=== PATIENT | female | born 1990 | race Hispanic/Latino ===

== ENCOUNTER 2022-01-23 15:52 | Emergency (ER) | payer OTHER | END 2022-01-23 18:25 | disposition home or self-care (01) | LOC: CSHERS 15:52 | DX: U07.1 COVID-19 (principal); R10.9 Unspecified abdominal pain; R51.9 Headache, unspecified | CPT/HCPCS: 99283 ==

== ENCOUNTER 2023-03-05 05:30 | Inpatient (IN) | payer OTHER ==
[2023-03-06] MEDS ORDERED: Bupivacaine 0.25% HCL 30 ML VIAL ONE (08:00)
[2023-03-06] MEDS ORDERED: Methylergonovine 0.2 MG/ML VIAL IM PRN (09:40)
[2023-03-06] MEDS ORDERED: Carboprost 250 MCG/ML AMP IM PRN (09:40)
[2023-03-06] MEDS ORDERED: Promethazine HCl 25 MG/ML VIAL IM PRN ×3 (09:40→21:15)
[2023-03-06] MEDS ORDERED: Diphenoxylate HCl/Atropine Tablet PO PRN ×2 (09:40)
[2023-03-06] MEDS ORDERED: Docusate 100 MG CAP PO PRN (09:40)
[2023-03-06] MEDS ORDERED: Acetaminophen 500 MG TAB PO PRN (09:40)
[2023-03-06] MEDS ORDERED: Misoprostol 200 MCG TAB PR PRN (09:40)
[2023-03-06] MEDS ORDERED: Ondansetron PF 4 MG/2 ML Vial IVP PRN ×3 (09:40→21:15)
[2023-03-06] MEDS ORDERED: Lidocaine 1% (PF) 30 ML VIAL SC PRN (09:40)
[2023-03-06] MEDS ORDERED: Tranexamic Acid 1,000 MG/10 ML VIAL IVP PRN (09:40)
[2023-03-06] MEDS ORDERED: Zolpidem Tartrate 5 MG TAB PO PRN ×2 (09:40→21:15)
[2023-03-06] MEDS ORDERED: Ibuprofen 800 MG TAB PO PRN (09:40)
[2023-03-06] MEDS ORDERED: HYDROcodone/Acetaminophen 5/325 mg Tablet PO PRN ×2 (09:40)
[2023-03-06] MEDS ORDERED: hydrALAZINE 20 MG/ML VIAL SLOW IVP PRN ×2 (09:40→21:15)
[2023-03-06] MEDS ORDERED: Butorphanol Tartrate 1 MG/ML VIAL SLOW IVP PRN (09:40)
[2023-03-06] MEDS ORDERED: fentaNYL 50 mcg/mL 1 mL Vial SLOW IVP PRN (09:40)
[2023-03-06] MEDS ORDERED: NS w/ Oxytocin 30 units 500 ML IV SCH ×4 (09:45→21:15)
[2023-03-06] MEDS ORDERED: Lactated Ringer's 1,000 ML IV SCH (09:45)
[2023-03-06 09:53] VITALS: BMI 48.4
[2023-03-06] MEDS ORDERED: NS w/ Oxytocin 30 units 500 ML ONE (10:11)
[2023-03-06 10:49] LABS: Hematocrit 35.5 % (34.9-44.5); Hemoglobin 11.5 g/dL (12.0-15.5); Mean Corpuscular HGB CONC 32.4 g/dL (32.0-36.0); Mean Corpuscular Hemoglobin 25.8 pg (27.0-33.0); Mean Corpuscular Volume 79.8 fl (81.6-98.3); Mean Platelet Volume 12.3 fl (7.4-10.4); Platelet Count 217 10x3/uL (150-450); RBC Distribution Width 14.5 % (11.5-14.5); Red Blood Cell (RBC) Count 4.45 10x6/uL (3.90-5.03); White Blood Cell (WBC) Count 7.1 10x3/uL (3.5-10.5)
[2023-03-06 10:56] LABS: Syphilis Antibody Nonreactive (Nonreactive); Syphilis Antibody Index 0.02 S/CO (<1.00 Non-Reactive)
[2023-03-06 10:57] LABS: Hep B Surf Ag - L&D Non-Reactive S/CO (NonReactive)
[2023-03-06] MEDS ORDERED: fentaNYL/Ropivacaine Epidural 100 ML ONE (11:36)
[2023-03-06] MEDS ORDERED: ePHEDrine Sulfate 50 MG/10 ML VIAL SLOW IVP PRN (13:22)
[2023-03-06] MEDS ORDERED: diphenhydrAMINE 50 MG/ML VIAL IVP PRN (13:22)
[2023-03-06] MEDS ORDERED: Moisturizing Cream (Eucerin) 113 GM JAR TOP PRN (13:22)
[2023-03-06] MEDS ORDERED: Naloxone HCl 0.4 mg/ml Vial IVP PRN ×2 (13:22)
[2023-03-06] MEDS ORDERED: Lactated Ringer's 500 ML IV PRN (13:22)
[2023-03-06] MEDS ORDERED: Acetaminophen 325 MG TAB PO PRN (13:22)
[2023-03-06] MEDS ORDERED: fentaNYL 2 mcg/Ropivacaine 0.2% Epidural 100 ML CADD EPIDURAL SCH (13:30)
[2023-03-06] MEDS ORDERED: Communication Order-Pharmacy FS SCH (13:30)
[2023-03-06] MEDS ORDERED: Methylergonovine 0.2 MG/ML VIAL ONE (16:56)
[2023-03-06] MEDS ORDERED: Tranexamic Acid 1,000 MG/10 ML VIAL ONE (16:56)
[2023-03-06] MEDS ORDERED: Misoprostol 200 MCG TAB ONE (16:56)
[2023-03-06] MEDS ORDERED: Benzocaine-Menthol 82.5 ML CAN TOP PRN (21:15)
[2023-03-06] MEDS ORDERED: Milk Of Magnesia 30 ML UDCUP PO PRN (21:15)
[2023-03-06] MEDS ORDERED: Lanolin Ointment 7 GM TUBE TOP PRN (21:15)
[2023-03-06] MEDS ORDERED: Varicella virus, LIVE 0.5 ML VIAL SC ONE (21:15)
[2023-03-06] MEDS ORDERED: Measles/Mumps/Rubella 10 MCG/0.5 ML VIAL SC ONE (21:15)
[2023-03-06] MEDS ORDERED: Methylergonovine 0.2 MG TAB PO PRN (21:15)
[2023-03-06] MEDS ORDERED: Boostrix 0.5 ML (Tdap) VIAL (>/=7 yrs of age) IM ONE (21:15)
[2023-03-06] MEDS ORDERED: diphenhydrAMINE 25 MG CAP PO PRN (21:15)
[2023-03-06] MEDS ORDERED: Bisacodyl 10 MG SUPP PR PRN (21:15)
[2023-03-06] MEDS ORDERED: Preparation H Ointment 28 GM TUBE PR PRN (21:15)
[2023-03-06] MEDS ORDERED: Misoprostol 200 MCG TAB VAG PRN (21:15)
[2023-03-06] MEDS ORDERED: Docusate 100 MG CAP PO SCH (21:45)
[2023-03-06] MEDS ORDERED: Ferrous Sulfate 325 MG TAB PO SCH (21:45)
[2023-03-07 03:22] LABS: #Monocytes 0.6 10x3/uL (0.0-1.1); #Neutrophils 6.5 10x3/uL (1.5-8.4); %Basophils 0.3 % (0.0-2.0); %Eosinophils 0.1 % (0.0-6.0); %Lymphocytes 24.2 % (18.0-47.0); %Monocytes 5.9 % (0.0-10.0); %Neutrophils 69.2 % (40.0-75.0); Hemoglobin 10.6 g/dL (12.0-15.5); Mean Corpuscular HGB CONC 32.1 g/dL (32.0-36.0); Mean Corpuscular Hemoglobin 26.1 pg (27.0-33.0); Mean Corpuscular Volume 81.3 fl (81.6-98.3); Mean Platelet Volume 11.9 fl (7.4-10.4); Platelet Count 186 10x3/uL (150-450); RBC Distribution Width 14.6 % (11.5-14.5); Red Blood Cell (RBC) Count 4.06 10x6/uL (3.90-5.03); White Blood Cell (WBC) Count 9.4 10x3/uL (3.5-10.5)
[2023-03-07] MEDS: Ibuprofen 800 MG TAB PO SCH ×4 (03:43→20:14)
[2023-03-07] MEDS: HYDROcodone/Acetaminophen 5/325 mg Tablet PO PRN ×4 (03:47→20:13)
[2023-03-07] MEDS: Ferrous Sulfate 325 MG TAB PO SCH ×2 (07:17→13:45)
[2023-03-07] MEDS ORDERED: Prenatal Vitamin 1 TAB PO SCH (09:00)
[2023-03-07] MEDS: Docusate 100 MG CAP PO SCH ×2 (10:19→20:24)
[2023-03-07] MEDS ORDERED: Moisturizing Cream (Eucerin) 113 GM JAR TOP PRN (15:31)
[2023-03-07 20:07] VITALS: BP 103/61; TEMP 98
== END 2023-03-07 21:30 | disposition home or self-care (01) | DRG 807 ==
LOC: CSHLD 03-06 07:28 → CSHPP 03-06 20:52
PROVIDERS: ADMIT Obstetrics & Gynecology; ATTEND Obstetrics & Gynecology
PROC: 10E0XZZ Delivery of Products of Conception, External Approach (ICD-10-PCS; principal; 2023-03-06)
DX: O76 Abnormality in fetal heart rate and rhythm complicating labor and delivery (principal); Z37.0 Single live birth; Z3A.39 39 weeks gestation of pregnancy
CPT/HCPCS: 85025; 85027; 86780; 86850; 86900; 86901; 87340; J2590; S0020